=== PATIENT | male | born 1945 | race Caucasian/White ===

== ENCOUNTER 2018-04-27 21:35 | Emergency (ER) | payer MEDICARE, OTHER | END 2018-04-27 22:25 | disposition home or self-care (01) | LOC: ERS 21:35 | DX: T63.421A Toxic effect of venom of ants, accidental (unintentional), initial encounter (principal); L03.115 Cellulitis of right lower limb; Z79.899 Other long term (current) drug therapy | CPT/HCPCS: 99282 ==

== ENCOUNTER 2018-08-01 09:33 | Outpatient (CLI) | payer MEDICARE ==
--- NOTE | 2018-08-01 10:24 | RAD ---
RADIOGRAPH CHEST 2 VIEWS: HISTORY: 72-year-old male with dyspnea. FINDINGS: There is no air space density, pulmonary edema, pleural effusion, pneumothorax, or cardiomegaly. IMPRESSION: No acute cardiopulmonary findings. jn POS: [facility]
== END 2018-08-01 09:34 | disposition home or self-care (01) ==
LOC: RAD 09:33
PROVIDERS: ATTEND Internal Medicine Critical Care Medicine
DX: R06.00 Dyspnea, unspecified (principal)
CPT/HCPCS: 71046

== ENCOUNTER 2018-10-02 17:34 | Inpatient (IN) | payer MEDICARE ==
[~2018-10-02 17:34] MED LIST: Iopamidol 370 76% 100 ML VIAL ONE
[2018-10-02 18:24] LABS: #Basophils 0.1 thou/uL (0.0-0.2); #Eosinphils 0.1 thou/uL (0.0-0.7); #Monocytes 0.9 thou/uL (0.11-0.59); #Neutrophils 7.9 thou/uL (1.40-6.50); %Basophils 0.6 % (0.0-1.0); %Eosinophils 0.8 % (0.0-10.0); %Monocytes 8.3 % (0.0-10.0); %Neutrophils 72.3 % (42.0-75.0); Hemoglobin 13.9 g/dL (14.0-18.0); Mean Corpuscular HGB CONC 32.1 g/dL (32.0-36.0); Mean Corpuscular Hemoglobin 26.3 pg (27.0-31.0); Mean Corpuscular Volume 82.1 fL (78.0-98.0); Platelet Count 176 thou/uL (130-400); RBC Distribution Width 12.4 % (11.5-14.5); Red Blood Cell (RBC) Count 5.28 mill/uL (4.70-6.10); White Blood Cell (WBC) Count 10.9 thou/uL (4.8-10.8)
[2018-10-02 18:55] LABS: ALT (SGPT) 19 U/L (8-55); AST (SGOT) 21 U/L (5-34); Albumin 4.1 g/dL (3.4-4.8); Alkaline Phosphatase 98 U/L (40-150); Anion Gap 14 mmol/L (10-20); BUN (Urea Nitrogen) 19 mg/dL (8.4-25.7); Bilirubin, Total 0.8 mg/dL (0.2-1.2); Calc. Creatinine Clearance 0 mL/min (70-130); Calcium 9.3 mg/dL (7.8-10.44); Carbon Dioxide 25 mmol/L (23-31); Chloride 100 mmol/L (98-107); Estimated GFR-MDRD 67; Globulin 3.2 g/dL (2.4-3.5); Glucose 157 mg/dL (80-115); Potassium 3.4 mmol/L (3.5-5.1); Protein, Total 7.3 g/dL (5.8-8.1); Sodium 136 mmol/L (136-145)
[2018-10-02] MEDS ORDERED: Enoxaparin Sodium 100 MG/ML SYRINGE ONE ×2 (21:17→21:19)
[2018-10-02] MEDS ORDERED: cefTRIAXone\\ROCEPHIN 1 GM VIAL ONE (21:17)
[2018-10-02] MEDS ORDERED: Acetaminophen 325 MG TAB PO PRN (21:22)
[2018-10-02] MEDS ORDERED: Ondansetron ODT 4 MG TAB PO PRN (21:22)
--- NOTE | 2018-10-02 21:32 | CT ---
CT ANGIO OF CHEST PERFORMED WITH INTRAVENOUS CONTRAST ENHANCEMENT WITH 3D RECONSTRUCTIONS: 10/02/18 HISTORY: Shortness of breath, pleuritic chest pain. There is an infiltrative appearing process in the apical posterior segment of the left upper lobe als o with lingular infiltrative change and bibasilar lung changes which have the appearance more suggest mohan of atelectasis. There is no significant mediastinal and hilar adenopathy. The thoracic aorta is normal in caliber. There is a massive pulmonary embolus. This includes a saddle type embolus crossing the main pulmonary arteries, Extensive lower lobe pulmonary emboli are seen also with bilateral upper lobe pulmonary em boli more pronounced on the left side. The visualized liver parenchyma shows no focal findings. Right and left adrenal glands are normal. IMPRESSION: 1. Massive pulmonary embolus with a saddle type embolus. 2. Apical posterior segment infiltrative appearing process. It is pleural based but does not hav e a typical appearance of a pulmonary infarct. There is also lingular parenchymal changes suggestive of possible infiltrate. The findings discussed with Dr. Mann. POS: [facility]
[2018-10-02] MEDS ORDERED: Potassium Chloride 20 MEQ TAB PO SCH (22:00)
[2018-10-02 22:18] LABS: Troponin I 0.175 ng/mL (< 0.028)
[2018-10-02 22:37] VITALS: BMI 27.7
[2018-10-02 23:39] LABS: CKMB 2.9 ng/mL (0-6.6)
[2018-10-02] MEDS ORDERED: Venlafaxine HCl XR 150 MG CAP PO SCH (23:45)
[2018-10-03] MEDS: Azithromycin 500 MG in Sodium Chloride 0.9% 250 ML 250 ML IVPB SCH (00:33)
[2018-10-03] MEDS ORDERED: Morphine 2 MG/ML SYRINGE SLOW IVP SCH (00:50)
[2018-10-03 01:09] LABS: Troponin I 0.132 ng/mL (< 0.028)
[2018-10-03] MEDS: Morphine 2 MG/ML SYRINGE SLOW IVP PRN ×3 (05:18→12:28)
[2018-10-03 05:41] LABS: #Basophils 0.1 thou/uL (0.0-0.2); #Eosinphils 0.1 thou/uL (0.0-0.7); #Lymphocytes 2.9 thou/uL (1.20-3.40); #Monocytes 0.9 thou/uL (0.11-0.59); #Neutrophils 7.3 thou/uL (1.40-6.50); %Basophils 0.6 % (0.0-1.0); %Eosinophils 0.8 % (0.0-10.0); %Lymphocytes 25.9 % (21.0-51.0); %Monocytes 7.8 % (0.0-10.0); Hemoglobin 14.4 g/dL (14.0-18.0); Mean Corpuscular HGB CONC 32.5 g/dL (32.0-36.0); Mean Corpuscular Hemoglobin 26.7 pg (27.0-31.0); Platelet Count 173 thou/uL (130-400); RBC Distribution Width 12.5 % (11.5-14.5); Red Blood Cell (RBC) Count 5.38 mill/uL (4.70-6.10); White Blood Cell (WBC) Count 11.1 thou/uL (4.8-10.8)
[2018-10-03 06:06] LABS: Anion Gap 15 mmol/L (10-20); BUN (Urea Nitrogen) 15 mg/dL (8.4-25.7); Calc. Creatinine Clearance 105 mL/min (70-130); Calcium 9.3 mg/dL (7.8-10.44); Carbon Dioxide 25 mmol/L (23-31); Chloride 102 mmol/L (98-107); Estimated GFR-MDRD 88; Glucose 105 mg/dL (80-115); Potassium 3.6 mmol/L (3.5-5.1); Sodium 138 mmol/L (136-145)
[2018-10-03] MEDS: Enoxaparin Sodium 100 MG/ML SYRINGE SC SCH ×2 (08:03→20:15)
--- NOTE | 2018-10-03 09:17 | HP ---
PRIMARY CARE PHYSICIAN: Fili Max MD TIME OF EVALUATION: 08:20 p.m. CHIEF COMPLAINT: Shortness of breath. HISTORY OF PRESENT ILLNESS: This is a 72-year-old male patient with past medical history of BPH, hypertension, and also having DVT 2 weeks ago, admitted to the hospital after having shortness of breath. The symptom has been present for the past 2 days, no clear triggers, no alleviating factors. The symptoms get worse when the patient has a deep breath. On occasion, he has some chest pain that is worsened with deep breath, is retrosternal. DVT is spontaneous, the patient has a with colon cancer. He had colonoscopy 5 years and reportedly was negative. 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 Has not been in training since then. No other risk factors for VTE were found. PAST MEDICAL HISTORY: As described in the HPI. FAMILY HISTORY: Grandfather with cancer. No significant family history. PAST SURGICAL HISTORY: Hernia repair, cholecystectomy. SOCIAL HISTORY: The patient denies alcohol use. No drug use. No smoking history. Lives with family with his spouse. ALLERGIES: NO KNOWN DRUG ALLERGIES. MEDICATIONS: 1. Venlafaxine 150 mg b.i.d. 2. Hydrochlorothiazide 12.5 mg orally once a day. 3. Tamsulosin 0.4 mg extended release once a day. REVIEW OF SYSTEMS: CONSTITUTIONAL: No fever, chills, and generalized weakness. RESPIRATORY: The patient has shortness of breath, pleuritic like pain. No sputum production. CARDIOVASCULAR: No chest pain. No palpitation. GASTROINTESTINAL: No nausea, vomiting, diarrhea or abdominal pain. SYSTEM ENGINEER: No dizziness, headache or feeling lightheaded. GENITOURINARY: No burning on urination. EXTREMITIES: Right leg swelling. All other systems were reviewed and negative, expect for the findings mentioned above. PHYSICAL EXAMINATION: VITAL SIGNS: Blood pressure 131/84, heart rate 107, respiratory rate 17, temperature 98.3, pain 8/10, and oxygen saturation 94% on room air. The patient has had some drop in saturation, needing nasal cannula to keep saturation above 90. GENERAL APPEARANCE: The patient is alert, oriented, not in acute distress. HEENT: Normal conjunctivae, moist oral mucosa. Anicteric. NECK: No JVD. RESPIRATORY: Bilateral air entry. No rales. No wheezing. Symmetric expansion. There is some pleuritic pain with deep inspiration. CARDIOVASCULAR: The patient is mildly tachycardic at a rate of 105. Rhythm is regular. No murmurs. No gallop. Right leg edema. ABDOMEN: Soft. Normal bowel sounds. MUSCULOSKELETAL: He has baseline range of motion on straining, no tenderness. SKIN: Warm, intact. No palor, no rash. No redness. EXTREMITIES: Peripheral pulses are present. Capillary refill seems to be intact. NEUROLOGIC: No evidence of any new focal weakness. The patient has normal speech. Cranial nerves seems to be intact. PSYCHIATRIC: The patient is in good mood. No anxiety. Oriented, optimal judgement. DIAGNOSTIC DATA: EKG was reviewed by myself. The patient has sinus tachycardia at a rate of 105, QRS 88, NM 118, . No other evidence of acute findings on the EKG. Chest x-rays and CAT scan were done. The patient has massive pulmonary embolism with saddle type embolus with posterior segment infiltrative appearing process. It is pleural based, but does not have a typical appearance of pulmonary infarct. There is also linear parenchymal changes, which are just possible infiltrates. ASSESSMENT AND PLAN: The patient was admitted to the hospital with the following medical problems; 1. Saddle pulmonary embolism associated with hypoxia and acute respiratory failure. The patient needing oxygen with nasal cannula to keep saturation above 90. The patient is receiving Lovenox , this was discussed with Dr. Cuellar. Given the location of the thrombus and size and presentation with acute respiratory failure, we will monitor the patient closely. We will adjust treatment as per the patient's clinical course. 2. Possible pneumonia as seen on the CT scan. The patient does not have any other symptoms of infection, however, Radiology has emphasized that the appearance does not look like any pulmonary infection. For that reason, we will cover with antibiotics. We will send procalcitonin and cultures and we will adjust treatment as needed. 3. Hypokalemia. Potassium 3.4, this is mild. We will replace electrolytes as needed. 4. Hyperglycemia. Glucose 157. No report of diabetes. This seems to be related to acute physically stressed, no need for acute intervention. We will monitor. We will treat accordingly. 5. Indeterminate troponin, 0.174, this is likely secondary to pulmonary embolism. We will trend troponins. The patient is already on Lovenox, unlikely to be an acute coronary syndrome. 6. DVT prophylaxis. The patient on full dose anticoagulation. 7. History of hypertension, given the possibility of acute obstructive . We will restart home medications at this point. RISK ASSESSMENT: 1. This is a high risk patient given presentation with saddle pulmonary embolism and acute respiratory failure. 2. Acute hypoxic respiratory failure. The patient needed nasal cannula to keep saturation above 90. We will treat underlying condition, likely secondary to acute pulmonary embolism and pneumonia in case the infection is demonstrated. Job ID: [id number]
--- NOTE | 2018-10-03 11:44 | PDOC.PN ---
- Subjective Encounter Start Date: 10/03/18 Encounter Start Time: 07:40 - Objective Resuscitation Status - Order Detail: 10/02/18 21:22 Resuscitation Status Routine Resuscitation Status: FULL: Full Resuscitation MAR Reviewed: Yes Vital Signs & Weight: Vital Signs (12 hours) Temp Pulse Resp BP Pulse Ox 10/03/18 11:11 99.1 F 94 16 131/83 90 L 10/03/18 08:00 96 10/03/18 07:23 98.6 F 98 16 119/75 96 10/03/18 04:00 98.2 F 94 25 H 113/85 93 L 10/03/18 01:22 98.7 F 102 H 20 112/85 92 L 10/03/18 00:38 100.1 F H 99 25 H 114/83 95 Weight Weight 204 lb 6.4 oz I&O: 10/02/18 10/03/18 10/04/18 06:59 06:59 06:59 Intake Total 400 Output Total 380 Balance 20 Result Diagrams: 10/03/18 05:31 10/03/18 05:31 EKG Reviewed by me: Yes (Tele: sinus tachycardia) Phys Exam - Physical Examination Constitutional: NAD HEENT: moist MMs, sclera anicteric, oral pharynx no lesions, 2+ tonsils Neck: no nodes, no JVD, supple, full ROM Respiratory: no wheezing, no rales, no rhonchi, clear to auscultation bilateral S1, S2, tachy, reg Gastrointestinal: soft, non-tender, no distention, positive bowel sounds Musculoskeletal: edema present Neurological: moves all 4 limbs Psychiatric: normal affect, A&O x 3 Dx/Plan (1) Pulmonary embolism Code(s): I26.99 - OTHER PULMONARY EMBOLISM WITHOUT ACUTE COR PULMONALE Status : Acute Comment: on Lovenox (2) CAP (community acquired pneumonia) Code(s): J18.9 - PNEUMONIA, UNSPECIFIED ORGANISM Status: Acute Comment: continue antibiotics as below for suspected gram negative bacterial pneumonia (3) DVT (deep venous thrombosis) Code(s): I82.409 - ACUTE EMBOLISM AND THOMBOS UNSP DEEP VN UNSP LOWER EXTREMITY Status: Acute Comment: on Lovenox (4) HTN (hypertension) Code(s): I10 - ESSENTIAL (PRIMARY) HYPERTENSION Status: Chronic Comment: controlled (5) BPH (benign prostatic hyperplasia) Code(s): N40.0 - BENIGN PROSTATIC HYPERPLASIA WITHOUT LOWER URINRY TRACT SYMP Status: Chronic Comment: stable - Plan * . Review of Systems - Review of Systems Constitutional: negative: fever, chills, sweats, weakness, malaise Respiratory: negative: Cough, Shortness of Breath, SOB with Excertion, Pleuritic Pain, Wheezing Cardiovascular: chest pain, edema. negative: palpitations, orthopnea, paroxysmal nocturnal dyspnea, light headedness Gastrointestinal: negative: Nausea, Vomiting, Abdominal Pain, Diarrhea, Constipation, Melena, Hematochezia Genitourinary: negative: Dysuria, Frequency, Incontinence, Hematuria, Retention Skin: negative: Rash, Lesions, Alex, Bruising - Medications/Allergies Allergies/Adverse Reactions: Allergies Allergy/AdvReac Type Severity Reaction Status Date / Time No Known Drug Allergies Allergy Verified 10/02/18 22:43 Medications: Current Medications Acetaminophen (Tylenol) 650 mg PO Q4H PRN PRN Reason: Headache/Fever/Mild Pain (1-3) Last Admin: 10/03/18 00:31 Dose: 650 mg Enoxaparin Sodium (Lovenox) 90 mg SC 0900,2100 [facility] Last Admin: 10/03/18 08:03 Dose: 90 mg Ceftriaxone Sodium 1 gm/ (Sodium Chloride) 100 mls @ 200 mls/hr IVPB Q24HR [facility] Azithromycin 500 mg/ Sodium (Chloride) 250 mls @ 250 mls/hr IVPB Q24HR@2359 [facility] Last Admin: 10/03/18 00:33 Dose: 250 mls Methylprednisolone Sodium Succinate (Solu-Medrol) 40 mg IVP Q6HR [facility] Morphine Sulfate (Morphine) 2 mg SLOW IVP Q4H PRN PRN Reason: Moderate to Severe Pain (6-10) Last Admin: 10/03/18 07:55 Dose: 2 mg Ondansetron HCl (Zofran Odt) 4 mg PO Q6H PRN PRN Reason: Nausea/Vomiting Sodium Chloride (Flush - Normal Saline) 10 ml IVF Q12HR [facility] Last Admin: 10/03/18 08:07 Dose: 10 ml Sodium Chloride (Flush - Normal Saline) 10 ml IVF PRN PRN PRN Reason: Saline Flush Last Admin: 10/03/18 01:03 Dose: 10 ml
--- NOTE | 2018-10-03 15:00 | CON ---
DATE OF CONSULTATION: HISTORY OF PRESENT ILLNESS: A 72-year-old gentleman, presented to the ER with a 2-day history of swelling of his left leg and left-sided chest pain. His and the patient says about 8 weeks ago, he went to see his primary care physician, Dr. Max, for left leg swelling. Ultrasound was done and it showed superficial DVT. He was given some aspirin. He has come to follow up sooner, but apparently did not show up until 2 days ago when the swelling got worse and started having chest pain. Ultrasound at that time showed DVT and he was sent to the ER, where CT chest showed bilateral pulmonary emboli. This morning, he is complaining of significant left-sided pleuritic chest pain. No fever. No chills. No sputum production. He is a nonsmoker. Two months ago, he apparently fell on his chest and apparently could have bruised his lung. There is no previous history of TB, pneumonia, or bronchial asthma. No history of pulmonary emboli. No history of DVT in the past. PAST MEDICAL HISTORY: Pertinent mainly for BPH and hypertension. PAST SURGICAL HISTORY: Previous surgeries including hernia operation and gallbladder. SOCIAL HISTORY: Retired accountant manager. MEDICATIONS: Chronic medications from home includes; 1. Flomax 0.4. 2. Effexor 150. ALLERGIES: NONE. REVIEW OF SYSTEMS: Otherwise unremarkable. PHYSICAL EXAMINATION: GENRAL: He is complaining of pain on his left side. VITAL SIGNS: Temperature is 98, pulse 98, respiratory rate 16, sats are 96% on room air, and blood pressure 119/75. CHEST: Reveal no wheezing or crackles. CARDIAC: Normal S1 and S2. ABDOMEN: No gallops, no masses. LABORATORY DATA: White count 11,000, H and H 14 and 44, and platelet count 173,000. Lytes are normal. IMPRESSION: 1. Bilateral pulmonary emboli. 2. Left leg deep venous thrombosis. 3. Hypertension. 4. Benign prostatic hyperplasia. PLAN: 1. Continue Lovenox, steroids, anti-inflammatory, and empiric antibiotics. 2. If stable, we will consider switching him over to Eliquis in the next several days. Consultation note 70 minutes, 50% direct patient care. Job ID: [id number]
[2018-10-03] MEDS ORDERED: cefTRIAXone\\ROCEPHIN 1 GM in Sodium Chloride 0.9% 100 ML IVPB SCH (20:00)
--- NOTE | 2018-10-03 22:05 | EKG ---
Test Reason : STAT Blood Pressure : / mmHG Vent. Rate : 094 BPM Atrial Rate : 094 BPM P-R Int : 140 ms QRS Dur : 086 ms QT Int : 342 ms P-R-T Axes : 038 054 029 degrees QTc Int : 427 ms Normal sinus rhythm Normal ECG When compared with ECG of 08-OCT-2008 07:38, Vent. rate has increased BY 35 BPM Confirmed by Arleen CASTILLO ([id number]) on 10/03/2018 10:05:13 PM Referred By: MAGDALENA Confirmed By:Arleen CASTILLO
[2018-10-04] MEDS: Azithromycin 500 MG in Sodium Chloride 0.9% 250 ML 250 ML IVPB SCH (00:05)
[2018-10-04] MEDS: Enoxaparin Sodium 100 MG/ML SYRINGE SC SCH ×2 (09:05→20:08)
--- NOTE | 2018-10-04 09:39 | RAD ---
CHEST ONE VIEW: Comparison: 10-02-18 FINDINGS: Normal cardiac silhouette. The pulmonary vessels and hilum are normal. Blunting of the costophrenic a ngles due to bilateral pleural effusion and parenchymal changes. Subtle opacity in the left upper lobe is again demonstrated. No pneumothorax. IMPRESSION: No significant change. POS: [facility]
--- NOTE | 2018-10-04 10:40 | PRG ---
DATE OF SERVICE: 10/04/2018 SUBJECTIVE: A 72-year-old gentleman this morning, is much improved. His chest pain is pretty much resolved. OBJECTIVE: VITAL SIGNS: Sats are 98% on 3 L, temperature 97, pulse 94, respiration 18, and blood pressure is 104/64. CHEST: Decreased breath sounds. No wheezing. CARDIAC: Normal S1 and S2. No gallop or masses. IMPRESSION: Pulmonary embolism, deep venous thrombosis, pleuritic chest pain, much improved. Echocardiogram shows RV strain, but normal EF. PLAN: Chest x-ray has been ordered. Continue Lovenox. PT, supportive care. Consider switching over to Eliquis in the next 48 hours. Job ID: [id number]
--- NOTE | 2018-10-04 12:06 | PDOC.PN ---
- Subjective Encounter Start Date: 10/04/18 Encounter Start Time: 09:20 Pt seen for followup re; pulmonary embolism. Chest pain is better, able to take deeper breaths. - Objective Resuscitation Status - Order Detail: 10/02/18 21:22 Resuscitation Status Routine Resuscitation Status: FULL: Full Resuscitation MAR Reviewed: Yes Vital Signs & Weight: Vital Signs (12 hours) Temp Pulse Resp BP Pulse Ox 10/04/18 10:50 98.3 F 88 18 129/88 96 10/04/18 07:25 97.6 F 94 18 104/64 95 10/04/18 07:14 98 10/04/18 04:00 98.7 F 85 27 H 110/69 96 Weight Weight 205 lb 4.8 oz I&O: 10/03/18 10/04/18 10/05/18 06:59 06:59 06:59 Intake Total 400 600 Output Total 380 520 Balance 20 80 Result Diagrams: 10/03/18 05:31 10/03/18 05:31 EKG Reviewed by me: Yes (Tele: NSR) Phys Exam - Physical Examination Constitutional: NAD HEENT: moist MMs Neck: supple Respiratory: clear to auscultation bilateral Cardiovascular: RRR Gastrointestinal: soft Neurological: moves all 4 limbs Psychiatric: normal affect Dx/Plan (1) Pulmonary embolism Code(s): I26.99 - OTHER PULMONARY EMBOLISM WITHOUT ACUTE COR PULMONALE Status : Acute Comment: continue therapeutic Lovenox (2) CAP (community acquired pneumonia) Code(s): J18.9 - PNEUMONIA, UNSPECIFIED ORGANISM Status: Acute Comment: continue antibiotics as below (3) DVT (deep venous thrombosis) Code(s): I82.409 - ACUTE EMBOLISM AND THOMBOS UNSP DEEP VN UNSP LOWER EXTREMITY Status: Acute Comment: continue therapeutic Lovenox (4) HTN (hypertension) Code(s): I10 - ESSENTIAL (PRIMARY) HYPERTENSION Status: Chronic Comment: controlled (5) BPH (benign prostatic hyperplasia) Code(s): N40.0 - BENIGN PROSTATIC HYPERPLASIA WITHOUT LOWER URINRY TRACT SYMP Status: Chronic Comment: stable - Plan plan discussed w/ family, continue antibiotics, out of bed/ambulate * . Review of Systems - Review of Systems Respiratory: SOB with Excertion. negative: Cough, Shortness of Breath, Pleuritic Pain, Wheezing Cardiovascular: negative: chest pain, palpitations, orthopnea, paroxysmal nocturnal dyspnea, edema, light headedness - Medications/Allergies Allergies/Adverse Reactions: Allergies Allergy/AdvReac Type Severity Reaction Status Date / Time No Known Drug Allergies Allergy Verified 10/02/18 22:43 Medications: Current Medications Acetaminophen (Tylenol) 650 mg PO Q4H PRN PRN Reason: Headache/Fever/Mild Pain (1-3) Last Admin: 10/03/18 00:31 Dose: 650 mg Enoxaparin Sodium (Lovenox) 90 mg SC 0900,2100 [facility] Last Admin: 10/04/18 09:05 Dose: 90 mg Levofloxacin (Levaquin) 500 mg PO 0600 [facility] Stop: 10/10/18 06:01 Methylprednisolone Sodium Succinate (Solu-Medrol) 40 mg IVP BID [facility] Stop: 10/06/18 09:01 Morphine Sulfate (Morphine) 2 mg SLOW IVP Q4H PRN PRN Reason: Moderate to Severe Pain (6-10) Last Admin: 10/03/18 12:28 Dose: 2 mg Ondansetron HCl (Zofran Odt) 4 mg PO Q6H PRN PRN Reason: Nausea/Vomiting Sodium Chloride (Flush - Normal Saline) 10 ml IVF Q12HR [facility] Last Admin: 10/04/18 09:07 Dose: 10 ml Sodium Chloride (Flush - Normal Saline) 10 ml IVF PRN PRN PRN Reason: Saline Flush Last Admin: 10/03/18 12:24 Dose: 10 ml
[2018-10-04] MEDS: Venlafaxine HCl XR 150 MG CAP PO SCH (20:07)
[2018-10-05] MEDS: Enoxaparin Sodium 100 MG/ML SYRINGE SC SCH ×2 (09:03→20:33)
[2018-10-05] MEDS: Venlafaxine HCl XR 150 MG CAP PO SCH ×2 (09:04→20:35)
--- NOTE | 2018-10-05 10:34 | PRG ---
DATE OF SERVICE: 10/05/2018 SUBJECTIVE: No further pain. No shortness of breath. OBJECTIVE: VITAL SIGNS: Sats are 98% on 3 L, respiratory rate 17, temperature 97, and blood pressure is 141/69. CHEST: Decreased breath sounds, left base. Right lung unremarkable. CARDIAC: Normal S1 and S2. No gallops . IMPRESSION: 1. Left-sided pneumonia versus pulmonary infarct. 2. Pulmonary embolism/deep venous thrombosis. 3. Oral antibiotics, prednisone for three days. Switch over to Eliquis tomorrow. PT, supportive care. 4. He needs a minimum of 6 months of anticoagulation, if not longer. Job ID: [id number]
[2018-10-05] MEDS ORDERED: Famotidine 20 MG TAB PO SCH (11:30)
[2018-10-05 11:58] LABS: CKMB 4.8 ng/mL (0-6.6)
--- NOTE | 2018-10-05 13:21 | PDOC.PN ---
- Subjective Encounter Start Date: 10/05/18 Encounter Start Time: 10:30 Subjective: pt up in chair no complains - Objective Resuscitation Status - Order Detail: 10/02/18 21:22 Resuscitation Status Routine Resuscitation Status: FULL: Full Resuscitation Vital Signs & Weight: Vital Signs (12 hours) Temp Pulse Resp BP Pulse Ox 10/05/18 11:33 99.1 F 89 31 H 148/77 H 96 10/05/18 08:00 98 10/05/18 07:34 97.5 F L 79 17 141/69 H 98 10/05/18 03:42 98.4 F 76 20 107/53 L 100 Weight Weight 205 lb 4.8 oz I&O: 10/04/18 10/05/18 10/06/18 06:59 06:59 06:59 Intake Total 600 500 Output Total 520 Balance 80 500 Result Diagrams: 10/03/18 05:31 10/03/18 05:31 Phys Exam - Physical Examination Neck: no nodes, no JVD, supple, full ROM mild exp wheezing all over lungs Cardiovascular: RRR, no significant murmur, no rub, gallop, irregular Gastrointestinal: soft, non-tender, no distention, positive bowel sounds Dx/Plan (1) Pulmonary embolism Code(s): I26.99 - OTHER PULMONARY EMBOLISM WITHOUT ACUTE COR PULMONALE Status : Acute Comment: continue therapeutic Lovenox (2) HTN (hypertension) Code(s): I10 - ESSENTIAL (PRIMARY) HYPERTENSION Status: Chronic Comment: controlled (3) CAP (community acquired pneumonia) Code(s): J18.9 - PNEUMONIA, UNSPECIFIED ORGANISM Status: Acute Comment: c - Plan pt is on eliquis -: will continue abx and steroids * . Review of Systems - Review of Systems ENT: negative: Ear Pain, Ear Discharge, Nose Pain, Nose Discharge, Nose Congestion, Mouth Pain, Mouth Swelling, Throat Pain, Throat Swelling, Other Respiratory: negative: Cough, Dry, Shortness of Breath, Hemoptysis, SOB with Excertion, Pleuritic Pain, Sputum, Wheezing Cardiovascular: negative: chest pain, palpitations, orthopnea, paroxysmal nocturnal dyspnea, edema, light headedness, other Gastrointestinal: negative: Nausea, Vomiting, Abdominal Pain, Diarrhea, Constipation, Melena, Hematochezia, Other - Medications/Allergies Allergies/Adverse Reactions: Allergies Allergy/AdvReac Type Severity Reaction Status Date / Time No Known Drug Allergies Allergy Verified 10/02/18 22:43 Medications: Current Medications Acetaminophen (Tylenol) 650 mg PO Q4H PRN PRN Reason: Headache/Fever/Mild Pain (1-3) Last Admin: 10/03/18 00:31 Dose: 650 mg Apixaban (Eliquis) 10 mg PO BID [facility] Enoxaparin Sodium (Lovenox) 90 mg SC 0900,2100 [facility] Stop: 10/05/18 23:59 Last Admin: 10/05/18 09:03 Dose: 90 mg Famotidine (Pepcid) 20 mg PO BID [facility] Famotidine (Pepcid) 20 mg PO NOW [facility] Stop: 10/05/18 14:00 Last Admin: 10/05/18 12:30 Dose: 20 mg Levofloxacin (Levaquin) 500 mg PO 0600 [facility] Stop: 10/10/18 06:01 Last Admin: 10/05/18 05:55 Dose: 500 mg Morphine Sulfate (Morphine) 2 mg SLOW IVP Q4H PRN PRN Reason: Moderate to Severe Pain (6-10) Last Admin: 10/03/18 12:28 Dose: 2 mg Ondansetron HCl (Zofran Odt) 4 mg PO Q6H PRN PRN Reason: Nausea/Vomiting Prednisone (Prednisone) 20 mg PO QAM-WM [facility] Stop: 10/09/18 08:01 Sodium Chloride (Flush - Normal Saline) 10 ml IVF Q12HR [facility] Last Admin: 10/05/18 09:04 Dose: 10 ml Sodium Chloride (Flush - Normal Saline) 10 ml IVF PRN PRN PRN Reason: Saline Flush Last Admin: 10/03/18 12:24 Dose: 10 ml Venlafaxine HCl (Effexor Xr) 150 mg PO BID [facility] Last Admin: 10/05/18 09:04 Dose: 150 mg
--- NOTE | 2018-10-05 19:07 | EKG ---
Test Reason : Blood Pressure : / mmHG Vent. Rate : 080 BPM Atrial Rate : 080 BPM P-R Int : 144 ms QRS Dur : 088 ms QT Int : 378 ms P-R-T Axes : 049 037 009 degrees QTc Int : 435 ms Normal sinus rhythm Normal ECG When compared with ECG of 03-OCT-2018 05:20, No significant change was found Confirmed by Arleen CASTILLO ([id number]) on 10/05/2018 7:07:10 PM Referred By: EFRAÍN Confirmed By:Arleen CASTILLO
[2018-10-05] MEDS: Famotidine 20 MG TAB PO SCH (20:35)
[2018-10-06] MEDS: Apixaban 5 MG TAB PO SCH ×2 (08:12→20:20)
[2018-10-06] MEDS: Famotidine 20 MG TAB PO SCH ×2 (08:12→20:20)
[2018-10-06] MEDS: predniSONE 20 MG TAB PO SCH (08:12)
[2018-10-06] MEDS: Venlafaxine HCl XR 150 MG CAP PO SCH ×2 (08:12→20:21)
--- NOTE | 2018-10-06 11:48 | PDOC.PN ---
- Subjective Encounter Start Date: 10/06/18 Encounter Start Time: 11:15 Subjective: pt up in bed feels well - Objective Resuscitation Status - Order Detail: 10/02/18 21:22 Resuscitation Status Routine Resuscitation Status: FULL: Full Resuscitation Vital Signs & Weight: Vital Signs (12 hours) Temp Pulse Resp BP Pulse Ox 10/06/18 11:11 98.7 F 83 28 H 124/81 96 10/06/18 07:39 98.4 F 83 29 H 130/95 H 96 10/06/18 07:35 95 10/06/18 04:00 98.0 F 79 16 124/67 96 10/06/18 00:00 97.4 F L 70 21 H 135/80 98 Weight Weight 206 lb I&O: 10/05/18 10/06/18 10/07/18 06:59 06:59 06:59 Intake Total 500 240 Balance 500 240 Result Diagrams: 10/03/18 05:31 10/03/18 05:31 Phys Exam - Physical Examination Neck: no nodes, no JVD, supple, full ROM Respiratory: no wheezing, no rales, no rhonchi, wheezing present, clear to auscultation bilateral Cardiovascular: RRR, no significant murmur, no rub, gallop, irregular Gastrointestinal: soft, non-tender, no distention, positive bowel sounds Dx/Plan (1) Pulmonary embolism Code(s): I26.99 - OTHER PULMONARY EMBOLISM WITHOUT ACUTE COR PULMONALE Status : Acute Comment: continue therapeutic Lovenox (2) HTN (hypertension) Code(s): I10 - ESSENTIAL (PRIMARY) HYPERTENSION Status: Chronic (3) CAP (community acquired pneumonia) Code(s): J18.9 - PNEUMONIA, UNSPECIFIED ORGANISM Status: Acute Comment: c - Plan pt on eliquis, is able to walk and not feels sob -: discharge when ok with pulmonary -: He will need repeat echo in 6m -: Pt would have benefited from tpa * . Review of Systems - Review of Systems Respiratory: negative: Cough, Dry, Shortness of Breath, Hemoptysis, SOB with Excertion, Pleuritic Pain, Sputum, Wheezing Cardiovascular: negative: chest pain, palpitations, orthopnea, paroxysmal nocturnal dyspnea, edema, light headedness, other Gastrointestinal: negative: Nausea, Vomiting, Abdominal Pain, Diarrhea, Constipation, Melena, Hematochezia, Other Genitourinary: negative: Dysuria, Frequency, Incontinence, Hematuria, Retention , Other - Medications/Allergies Allergies/Adverse Reactions: Allergies Allergy/AdvReac Type Severity Reaction Status Date / Time No Known Drug Allergies Allergy Verified 10/02/18 22:43 Medications: Current Medications Acetaminophen (Tylenol) 650 mg PO Q4H PRN PRN Reason: Headache/Fever/Mild Pain (1-3) Last Admin: 10/03/18 00:31 Dose: 650 mg Apixaban (Eliquis) 10 mg PO BID [facility] Stop: 10/12/18 21:01 Last Admin: 10/06/18 08:12 Dose: 10 mg Apixaban (Eliquis) 5 mg PO BID [facility] Famotidine (Pepcid) 20 mg PO BID [facility] Last Admin: 10/06/18 08:12 Dose: 20 mg Levofloxacin (Levaquin) 500 mg PO 0600 [facility] Stop: 10/10/18 06:01 Last Admin: 10/06/18 05:23 Dose: 500 mg Morphine Sulfate (Morphine) 2 mg SLOW IVP Q4H PRN PRN Reason: Moderate to Severe Pain (6-10) Last Admin: 10/03/18 12:28 Dose: 2 mg Ondansetron HCl (Zofran Odt) 4 mg PO Q6H PRN PRN Reason: Nausea/Vomiting Prednisone (Prednisone) 20 mg PO QAM-WM [facility] Stop: 10/09/18 08:01 Last Admin: 10/06/18 08:12 Dose: 20 mg Sodium Chloride (Flush - Normal Saline) 10 ml IVF Q12HR [facility] Last Admin: 10/06/18 08:12 Dose: 10 ml Sodium Chloride (Flush - Normal Saline) 10 ml IVF PRN PRN PRN Reason: Saline Flush Last Admin: 10/03/18 12:24 Dose: 10 ml Venlafaxine HCl (Effexor Xr) 150 mg PO BID [facility] Last Admin: 10/06/18 08:12 Dose: 150 mg
--- NOTE | 2018-10-06 12:06 | EKG ---
Test Reason : Blood Pressure : / mmHG Vent. Rate : 108 BPM Atrial Rate : 108 BPM P-R Int : 118 ms QRS Dur : 088 ms QT Int : 316 ms P-R-T Axes : 068 062 022 degrees QTc Int : 423 ms Sinus tachycardia Otherwise normal ECG Confirmed by BRAD ZAVALA DO ([id number]), online content editor TAVARES BENÍTEZ ([id number] on 10/06/2018 12:05:41 PM Referred By: Confirmed By:BRAD ZAVALA DO
--- NOTE | 2018-10-06 20:55 | PRG ---
DATE OF SERVICE: 10/06/2018 SERVICE: Pulmonary Medicine. INTERVAL HISTORY: The patient is doing outstanding from respiratory standpoint. He denies any chest pain, fevers, chills, nausea, or vomiting. He has been up walking in the hallways today with very little difficulty. Otherwise, there has been no interval change to his condition. He got started on p.o. medications today. Hopefully, he will be able to get out of here tomorrow morning. OBJECTIVE: VITAL SIGNS: Afebrile, pulse 77, blood pressure 156/91, respirations 34, and saturation 99% on room air. GENERAL: The patient is awake, alert, in no apparent distress. LUNGS: Excellent air entry. There is no prolonged expiratory phase or wheezing. HEART: Normal rate and regular. ABDOMEN: Soft, nontender, and nondistended. Bowel sounds are positive. MUSCULOSKELETAL: No cyanosis or clubbing. There is no pitting in the bilateral lower extremities. NEUROLOGIC: Grossly nonfocal. ASSESSMENT: 1. Acute hypoxic respiratory failure, resolved. 2. Acute pulmonary embolism with fairly large clot burden. 3. Pulmonary infiltrate. DISCUSSION AND PLAN: Despite the fact that the patient had a large clot burden, there did not appear to be a significant amount of stress on the heart. He very comfortably cleared his [id number] UT. He is breathing very comfortably. He has been able to walk around the unit without difficulties on room air. As such, if all goes well, he can be transitioned to home tomorrow morning on his p.o. anticoagulation, which will need to be continued for a period of 9 months. He will need to follow up with Dr. Cuellar in the outpatient setting. Levaquin can be discontinued after a total duration of 5 days. I will continue to follow if he remains in-house, but he will likely be going home tomorrow morning. Job ID: [id number]
[2018-10-07] MEDS: predniSONE 20 MG TAB PO SCH (08:08)
[2018-10-07] MEDS: Famotidine 20 MG TAB PO SCH (08:08)
[2018-10-07] MEDS: Apixaban 5 MG TAB PO SCH (08:08)
[2018-10-07] MEDS: Venlafaxine HCl XR 150 MG CAP PO SCH (08:09)
[2018-10-07 16:11] VITALS: BP 136/83; TEMP 98.4
--- NOTE | 2018-10-07 16:12 | PRG ---
DATE OF SERVICE: 10/07/2018 SERVICE: Pulmonary Medicine. INTERVAL HISTORY: The patient is doing really well from respiratory standpoint. He has been up walking the hallways. He has very little dyspnea that limits his activity. He denies any chest pain, fevers, or chills. There has been no hemoptysis. OBJECTIVE: VITAL SIGNS: Afebrile, except for T-max of 99.4. Pulse 87, blood pressure 126/74, respirations 16, saturation 98% on room air. GENERAL: The patient is awake, alert, in no apparent distress. LUNGS: Excellent air entry. There is no prolonged expiratory phase or wheezing. HEART: Normal rate, regular. ABDOMEN: Soft, nontender, and nondistended. Bowel sounds are positive. MUSCULOSKELETAL: No cyanosis or clubbing. There is no pitting in the bilateral lower extremities. NEUROLOGIC: Grossly nonfocal. ASSESSMENT: 1. Acute hypoxic respiratory failure, resolved. 2. Acute pulmonary embolism with fairly large clot burden. 3. Pulmonary infiltrate. 4. Swn-[id number]-adfwonaxm myocardial infarction, resolved. DISCUSSION AND PLAN: The patient is doing absolutely fantastic. He is a candidate for transition out of the hospital today. He will need to follow up with Pulmonology in the outpatient setting as directed. If he remains inhouse, Dr. Cuellar, will resume coverage in the morning. Job ID: [id number]
--- NOTE | 2018-10-08 03:31 | DIS ---
DATE OF ADMISSION: 10/02/2018 DATE OF DISCHARGE: 10/07/2018 DISCHARGE DIAGNOSES: 1. Saddle pulmonary emboli. 2. Pneumonia. HOSPITAL COURSE: The patient is a very pleasant 72-year-old male, who initially presented to the hospital on October 02 with complaints of significant amount of shortness of breath. The patient at this time in the ER underwent a CTA, which indicated a massive pulmonary emboli with saddle-type embolism and also atypical positional segment infiltrates, possible appearance, typical for infarct and there was some questionable, some possible infiltrates. The patient initially was seen by Pulmonology, was initially put on subcu heparin, also had some mild elevated troponins, but however, no significant EKG changes. The patient stated that initially he did follow up with his primary care doctor, Dr. Max, who did lower extremity Doppler, however, the patient never really followed up with him. The patient did have an echo, which indicated an EF of 55% to 60%, which indicated moderately enlarged right ventricular and mild hypokinesis and left atrium was normal; however, he did have significant enlargement of the right ventricle with mild hypokinesis. His shortness of breath also improved on ambulation. His repeat troponin was less than 0.010. He was transitioned to Eliquis and was watched for a couple of days. He was given instructions on risk factors of Eliquis including if dark stools or if he falls and hits his head, he needs to come into the ER. The patient understood this. He also was instructed to follow up with possible Hematology since there is no really clear etiology for his PE. The patient is very athletic and works out and really has no significant medical history. The patient states that he has had a colonoscopy and his repeat one is in 5 years just indicates some polyps. I would recommend following up with his PCP and just make sure that he is up to date on all his screenings. The patient also will require an echocardiogram in 3 to 6 months since he did have some since right ventricular was dilated. I have also provided him with a phone number for Hematology if he chooses to go to which I believe he should. DISCHARGE MEDICATIONS: The patient will be discharged home with the following medications. He will go home with; 1. Tamsulosin 0.4 daily. 2. Effexor 150 mg at bedtime. 3. Levaquin 500 mg for the next 3 doses. 4. He is going to go home with Eliquis, initially 10 mg b.i.d. until 10/12 and then on 10/13, he is going to do Eliquis 5 mg b.i.d. The recommendation was for 9 months; however, he will have to be reassessed since this was a pretty significant saddle pulmonary emboli and I believe he should follow up with the special services coordinator. PHYSICAL EXAMINATION: VITAL SIGNS: Temperature of 99.2, pulse 87, respirations 16, 98% on room air, and blood pressure 126/74, and walking, his sats were 94. GENERAL: He is awake, alert, and oriented x3. Does not appear in distress. CV: S1 and S2 present. No murmurs, rubs, or gallops. ABDOMEN: Soft and nontender. Bowel sounds are present x2. EXTREMITIES: No edema. Pedal pulses are present x2. FOLLOWUP: Again, he will follow up with primary care doctor as an outpatient and also Pulmonology and recommend seeing Hematology also. Job ID: [id number]
[2018-10-13] MEDS ORDERED: Apixaban 5 MG TAB PO SCH (09:00)
== END 2018-10-07 17:00 | disposition home or self-care (01) | DRG 175 ==
LOC: ERS 17:34 → IMCU/EMU 22:29
PROVIDERS: ADMIT Hospitalist; ATTEND Hospitalist
DX: I26.92 Saddle embolus of pulmonary artery without acute cor pulmonale (principal); J96.01 Acute respiratory failure with hypoxia; J18.9 Pneumonia, unspecified organism; I82.402 Acute embolism and thrombosis of unspecified deep veins of left lower extremity; N40.0 Benign prostatic hyperplasia without lower urinary tract symptoms; I10 Essential (primary) hypertension; E87.6 Hypokalemia; R73.9 Hyperglycemia, unspecified; R74.8 Abnormal levels of other serum enzymes; Z90.49 Acquired absence of other specified parts of digestive tract; Z80.9 Family history of malignant neoplasm, unspecified
CPT/HCPCS: 36415; 71045; 71275; 80048; 80053; 82553; 84484; 85025; 93005; 93010; 93306; 96365; 96372; G8978-GP-CJ; G8979-GP-CJ; G8980-GP-CJ; J0456; J0696; J1650; J2270; J2920; J7050; J7506

== ENCOUNTER 2018-11-26 09:35 | Outpatient (CLI) | payer MEDICARE ==
--- NOTE | 2018-11-26 12:27 | RAD ---
PA AND LATERAL VIEWS CHEST: HISTORY: Dyspnea. FINDINGS: Comparison is made with the exam of 10/04/2018. The heart size is normal. The lungs are expanded without focal areas of consolidation, pneumothoraces , or pleural effusions. There is a questionable nodular density in the left lower lateral lung which may either represent a parenchymal lung nodule or prominent costochondral junction. Further evaluation with CT scan would be helpful. POS: [facility]
== END 2018-11-26 09:36 | disposition home or self-care (01) ==
LOC: RAD 09:35
PROVIDERS: ATTEND Internal Medicine Critical Care Medicine
DX: R06.00 Dyspnea, unspecified (principal)
CPT/HCPCS: 71046

== ENCOUNTER 2025-10-08 20:08 | Emergency (ER) | payer MEDICARE, OTHER, SELFPAY ==
[2025-10-08] MEDS ORDERED: Lidocaine 1% w/Epinephrine 1:100K 20 ML VIAL ONE (20:28)
[2025-10-08] MEDS ORDERED: Bacitracin 1 PK ONE (21:04)
== END 2025-10-08 21:25 ==
LOC: ERS 20:08
DX: S06.9X1A Unspecified intracranial injury with loss of consciousness of 30 minutes or less, initial encounter (principal); S01.111A Laceration without foreign body of right eyelid and periocular area, initial encounter; S80.212A Abrasion, left knee, initial encounter; S80.211A Abrasion, right knee, initial encounter; I10 Essential (primary) hypertension; Z23 Encounter for immunization; Z86.718 Personal history of other venous thrombosis and embolism; W01.0XXA Fall on same level from slipping, tripping and stumbling without subsequent striking against object, initial encounter
CPT/HCPCS: 12011; 70450; 70486; 72125; 90471; 90715; G0390